=== PATIENT | female | born 1945 | race Caucasian/White ===

== ENCOUNTER → 2016-09-04 | Outpatient (CLI) | payer MEDICARE, OTHER ==
[~2016-09-04] MED LIST: ADVAIR 100-501 EAC1 INH; ALBUTEROL17 GM INH; AMARYL2 MG PO; ASPIRIN PO; CALTRATE 600+D PO; CERTAGEN PO; CHEWABLE ASPIRI81 MG PO; CIPRO PO; COLACE PO; CORDARONE200 M1 PO; COUMADIN1 MG PO; COUMADIN5 MG PO; DARCALMA PO; FISH OIL 1,001000 M1 PO; FLAGYL250 M1 PO; FUROSEMIDE40 MG PO; GLIMEPIRIDE2 MG PO; GLUCOPHAGE500 MG PO; JANTOVEN2 MG PO; LEVAQUIN750 MG PO; LOPRESSOR PO; LORTAB 5-325 M1 EACH PO; LORTAB 7.5-5001 TAB PO; LOVENOX SUBQ; METAMUCIL PACKE1 PK1 PO; METAMUCIL0.52 G PO; METFORMIN HCL500 M2 PO; METHIMAZOLE10 MG PO; METOPROLOL TAR25 MG PO; MILK OF MAGNESIA PO; MONTELUKAST SOD10 MG PO; MULTI VITAMIN1 EACH PO; NEXIUM PO; NICOTINE TRANSD21 MG TOP; NORCO 7.5-3251 EACH PO; NORCO 7.5/325 T1 TAB PO; OMEPRAZOLE40 M1 PO; OMNICEF PO; PREDNISONE10 MG/DOSE PO; PRILOSEC40 MG PO; PROMETHAZINE D118 ML PO; QVAR7.3 GM INH; TAPAZOLE5 MG PO; VIT E PO; VITAMIN D 4001 UDTAB PO; WARFARIN SODIUM2 M1 PO; ZOFRAN PO; ZYRTEC10 M1 PO; [UNRECOGNIZED DRUG - REMARK]
--- NOTE | ~2016-09-04 | XA47 ---
[facility] A Service of [facility] & [facility] RADIOLOGY TEXT RESULTS PATIENT: HUMBERTO TOVAR [facility] UNIT #: [id number] AGE: [address]: Morro Martinez MD SEX: F ORDER DR: [id number] [facility]. [place], [place] [address] [id number] O MR#: [id number] Acc #: [id number] NAME: HUMBERTO TOVAR : 1945 SEX: F STUDY DATE/TIME: 09/04/2016 9:00 UNIT: [facility] ROOM: STUDY DESCRIPTION: XA Aspiration Cyst/Abscess/Hem Attending Physician: Morro Martinez M.D. Referring Physician: Morro Martinez M.D. Ordering Physician: Morro Martinez M.D. Primary Care Physician: Yoana Jaimes M.D. MEDICAL IMAGING REPORT This report is preliminary unless electronic signature is present PROCEDURE Ultrasound guided seroma aspiration INDICATION 71-year-old female with history of ileostomy and abdominal wall seroma. Risks, benefits and alternatives of the procedure were discussed with the patient and informed consent was obtained. In the procedure room a time-out was performed confirming correct patient and procedure. All elements of maximum sterile-barrier technique utilized according to guidelines appropriate for the procedure. TECHNIQUE/FINDINGS Ultrasound was performed. It was largely anechoic however there were a few fibrin strands within the seroma. The overlying skin was prepped and draped in the usual sterile fashion. 1% lidocaine utilized to anesthetize the skin and underlying subcutaneous tissues. Next, under ultrasound guidance, a 5-Kittitian Yueh catheter was inserted into the collection. About 200 mL of yellow fluid was aspirated and then the flow began to be sluggish. Ultrasound was performed which demonstrated a large persistent collection. Therefore a Superstiff guidewire was advanced through the Yueh catheter and the catheter was removed and exchanged for a 6-Kittitian pigtail catheter which was utilized to drain the remainder of the fluid. Ultrasound following drainage demonstrated no further fluid. In total 1,200 mL of yellow fluid was drained and discarded. The catheter was removed and a sterile dressing was applied. The patient tolerated the procedure well without immediate complications. IMPRESSION Successful ultrasound guided drainage of a large abdominal wall seroma yielding 1,200 mL of clear yellow fluid. [facility]. [facility] A Service of [facility] RADIOLOGY TEXT RESULTS PATIENT: HUMBERTO TOVAR LOCATION: [facility] : 45 UNIT #: [id number] AGE: [address]: Morro Martinez MD SEX: F ORDER DR: Dictated by... Johnson Mata M.D. THIS IS AN ELECTRONICALLY VERIFIED REPORT Johnson Mata M.D. at 09/04/2016 4:19 PM Sasha TD: 09/04/2016 14:59 JOB #: [id number] MEDICAL IMAGING REPORT COPY
== END | disposition home or self-care (01) ==
LOC: CIVR 07:56
DX: M96.843 Postprocedural seroma of a musculoskeletal structure following other procedure (principal)
CPT/HCPCS: 76942; C1729